=== PATIENT | female | born 1975 | race Hispanic/Latino ===

== ENCOUNTER 2017-08-27 07:06 | Inpatient (IN) | payer BC, SELFPAY ==
[2017-08-27] MEDS ORDERED: NA CHLORIDE 0.9% 1,000 ML ONE ×3 (07:25→10:54)
[2017-08-27] MEDS ORDERED: INSULIN -REGULAR HUMAN 50 UNIT/0.5 ML ML ONE (07:41)
[2017-08-27] MEDS ORDERED: NA CHLORIDE 0.9% 100 ML IV ONE (07:42)
[2017-08-27 07:45] LABS: Glucose Level 1131 mg/dL (65-120); Lipase 37 U/L (22-51); Potassium 7.1 mEq/L (3.6-5.0)
[2017-08-27 07:45] LABS: Arterial Blood Carboxyhemoglob 0.7 % (0-1.5)
[2017-08-27 07:47] LABS: ALT/SGPT 19 IU/L (10-60); AST/SGOT 77 IU/L (10-42); Absolute Lymphocytes (CBC) 5.7 K/uL (0.7-4.9); Absolute Monocytes 2.3 K/uL (0.1-1.3); Absolute Neutrophil 32.9 K/uL (1.8-8.0); Albumin 4.1 g/dL (3.2-5.5); Alkaline Phosphatase 169 IU/L (42-121); BUN Blood Urea Nitrogen 41 mg/dL (6-20); Basophils % 0.8 % (0-1.3); Bilirubin Direct < 0.1 mg/dL (0-0.2); Eosinophils % 0.2 % (0-4.4); Hematocrit 38.5 % (36.0-45.0); Lymphocytes % 13.9 % (15.3-44.8); MCH 22.4 pg (27.0-35.0); MCV 89.6 fL (80-100); MPV 11.7 fL (7.6-11.3); Monocytes % 5.5 % (3.3-12.3); Protein, Total 7.6 g/dL (6.0-8.3); RBC Red Blood Cell Count 4.29 M/uL (3.86-4.86)
[2017-08-27 07:48] LABS: Bicarbonate < 7 mEq/L (21-31)
[2017-08-27 07:50] LABS: Sodium Level 116 mEq/L (135-145)
[2017-08-27] MEDS ORDERED: D5W 1,000 ML with NA BICARB 8.4% 150 MEQ IV SCH ×2 (08:00)
--- NOTE | 2017-08-27 08:26 | RAD REPORT ---
[facility] 8[facility]10 am CLINICAL HISTORY: Chest pain COMPARISON: 2010 FINDINGS: Bilateral breast implants obscure the lung bases. Remainder lungs appear clear. . The hear t is normal size
[2017-08-27 09:05] LABS: Barbiturates NEGATIVE; Benzodiazepines NEGATIVE; Cocaine NEGATIVE; Opiates NEGATIVE; Phencyclidine NEGATIVE; THC Cannibis NEGATIVE
[2017-08-27 09:10] LABS: METHAMPHETAM POSITIVE
[2017-08-27 09:12] LABS: Potassium 6.3 mEq/L (3.6-5.0)
[2017-08-27 09:59] LABS: Potassium 5.3 mEq/L (3.6-5.0)
--- NOTE | 2017-08-27 10:04 | ER ---
Nurse's Notes [facility] Name: Abigail Oro Age: 41 yrs Sex: Female : 1975 Arrival Date: 08/27/2017 Time: 07:07 Bed 3 Private MD: Diagnosis: Diabetic Ketoacidosis;Dehydration;Acute kidney failure;Hyperglycemia, unspecified Presentation: 08/27 07:17 Presenting complaint: EMS states: Family received call from pt requesting help. found ph naked on bathroom floor, denies falling w/ no injuries noted, pt found w/ Kussmaul respirations and AMS, hx of DKA, BGL >500 per fingerstick. Transition of care: patient was not received from another setting of care. Onset of symptoms was August 27, 2017. Initial Sepsis Screen: Does the patient meet any 2 criteria? RR > 20 per min. Altered Mental Status. HR > 90 bpm. Yes Does the patient have a suspected source of infection? No. Patient's initial sepsis screen is negative. Care prior to arrival: IV initiated. 20 GA, in the right antecubital area. 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 - Social history:: Smoking status: unknown. - Family history:: not pertinent. - Hospitalizations: : No recent hospitalization is reported. Screenin:51 Abuse screen: Denies threats or abuse. Denies injuries from another. Nutritional ph screening: No deficits noted. Tuberculosis screening: No symptoms or risk factors identified. Fall Risk No fall in past 12 months (0 pts). Secondary diagnosis (15 points) DKA. IV access (20 points). Ambulatory Aid- None/Bed Rest/Nurse Assist (0 pts). Gait- Weak (10 pts.). Mental Status- Overestimates/Forgets Limitations (15 pts.). Total Gupta Fall Scale indicates High Risk Score (45 or more points). Fall prevention measures have been instituted. Side Rails Up X 2 Placed Close to Nursing Station Frequent Obs/Assessments Occuring Family Present and informed to notify staff if the need to leave the bedside As available patient and family educated on Fall Prevention Program and Strategies. Assessment: 07:30 General: Appears in no apparent distress. uncomfortable, slender, well groomed, ph Behavior is restless, Smells of ketones. Pain: Denies pain. Neuro: Level of Consciousness is awake, obeys commands, confused, Oriented to person, place. Cardiovascular: Denies chest pain, Capillary refill < 3 seconds. Respiratory: Airway is patent Respiratory effort is shallow, Respiratory pattern is Kussmaul tachypnea. GI: Abdomen is flat, non-distended, Patient currently denies nausea, vomiting. Derm: Skin is intact, Skin is dry, Skin is normal, Skin temperature is cool. Musculoskeletal: Circulation, motion, and sensation intact. Range of motion: intact in all extremities. 08:00 Reassessment: Patient appears in no apparent distress at this time. Patient and/or ph family updated on plan of care and expected duration. Pain level reassessed. Pt's daughter at bedside, given pt's jewelry, (2 rings and 1 bracelet). 08:06 Reassessment: pt taking off shorts, as shorts were pulled off, a small clear bag of iw white powdery substance fell to ground. Substance was placed in bio hazard bag and PD notified, are sending officer. 08:20 Reassessment: white substance handed off to Officer Cooper and Officer Chano of [employer]. iw 08:40 Reassessment: Criticore Pang inserted and pt's core temperature found to be 92.6, ERP ph notified and warming blanket placed. 09:38 Reassessment: Patient appears in no apparent distress at this time. Patient and/or ph family updated on plan of care and expected duration. Pain level reassessed. Pt's respirations slowed from 30 bpm to 22, pt more alert and responding appropriately to questions, oriented to person, place and situation. Daughter who has been at bedside leaving to go home, contact info: Celeste Oro [phone]. 10:34 Reassessment: Patient appears in no apparent distress at this time. No changes from ph previously documented assessment. Patient and/or family updated on plan of care and expected duration. Pain level reassessed. 11:56 Reassessment: Patient appears in no apparent distress at this time. Patient and/or ph family updated on plan of care and expected duration. Pain level reassessed. Fingerstick BGL decreased to 218, verbal order received from Dr Martin to decrease insulin drip from 7 units to 4. Vital Signs: 07:46 BP 101 / 68; Pulse 106; Resp 30; Temp 97.2(TE); Pulse Ox 100% on R/A; ph 08:15 BP 121 / 63; Pulse 106; Resp 28; Pulse Ox 100% ; ph 08:45 BP 122 / 79; Pulse 98; Resp 22; Temp 94.4(C); Pulse Ox 100% on R/A; ph 09:35 BP 124 / 63; Pulse 100; Resp 22; Temp 95.8(C); Pulse Ox 95% on R/A; ph 10:00 BP 118 / 72; Pulse 99; Resp 22; Temp 96.8(C); Pulse Ox 96% on R/A; ph 10:33 BP 108 / 74; Pulse 100; Resp 24; Temp 97.0(C); Pulse Ox 98% on R/A; ph 11:03 BP 111 / 75; Pulse 102; Resp 18; Temp 98.1(C); Pulse Ox 97% on R/A; ph 11:53 BP 102 / 74; Pulse 122; Resp 22; Temp 99.3(C); Pulse Ox 96% on R/A; sg 11:53 warming blanket d/c sg ED Course: 07:07 Patient arrived in ED. rn 07:07 Noah Pappas MD is Attending Physician. rn 07:10 Initial lab(s) drawn, by ky, sent to lab. Inserted saline lock: 20 gauge in right ph antecubital area, using aseptic technique. Blood collected. 07:17 Rosi Barron, NEVA is Primary Nurse. ph 07:20 Triage completed. ph 07:22 Arm band placed on. ph 07:51 Notified ED physician of a critical lab result(s). Lactate=71.1. iw 07:52 Patient has correct armband on for positive identification. Placed in gown. Bed in low ph position. Call light in reach. Side rails up X2. air sampling and monitoring on. Pulse ox on. NIBP on. Warm blanket given. Verbal reassurance given. 08:08 X-ray completed. Portable x-ray completed in exam room. Patient tolerated procedure jb2 well. 08:08 XRAY Chest (1 view) In Process Unspecified. EDMS 08:11 Notified ED physician of a critical lab result(s). WBC=41.1. iw 08:27 Inserted saline lock: 20 gauge in left antecubital area, using aseptic technique. iw 08:43 Urine Microscopic Only Sent. ag 08:43 Urine Culture Sent. ag 08:43 Blood Culture Adult (2) Sent. ag 08:44 Pang cath inserted, using sterile technique, 16 Fr., by ky, balloon inflated, to ag gravity drainage, clamped. urine specimen collected. 08:51 Pillow given. ph 08:52 Thermoregulation: warm blanket given to patient. ph 09:04 EKG done, by voice intercept technician. reviewed by Noah Pappas MD. at1 10:03 Sp Martin DO is Hospitalizing Provider. rn 10:03 Juanita Martin MD is Hospitalizing Provider. rn 11:03 No provider procedures requiring assistance completed. Patient admitted, IV remains in ph place. 15:35 Primary Nurse role handed off by Rosi Barron RN kb Administered Medications: 07:40 Drug: NS 0.9% 1000 ml Route: IV; Rate: 1000 ml; Site: right antecubital; ph 09:37 Follow up: Response: No adverse reaction; IV Status: Completed infusion ph 07:45 Drug: Insulin Drip - (Insulin Regular Human 100 units, NS 0.9% 100 ml) {Co-Signature: ph (Rosi Barron RN).} Route: IV; Rate: calculated rate; Site: right antecubital; 12:09 Follow up: Response: No adverse reaction; Blood sugar is lowered; Rate change 4 units/hrph 12:15 Follow up: Response: No adverse reaction; Blood sugar is lowered; IV Status: Infusion ph continued upon transfer 07:45 Drug: Insulin Regular Human 10 units {Co-Signature: ph (Rosi Barron RN).} Route: IVP; kl Site: right antecubital; 11:07 Follow up: Response: No adverse reaction; Blood sugar is lowered ph 07:45 Drug: Sodium Bicarbonate 1 amp Route: IVP; Site: right antecubital; iw 11:07 Follow up: Response: No adverse reaction ph 07:45 Drug: Sodium Bicarbonate 1 amp Route: IVP; Site: right antecubital; iw 11:07 Follow up: Response: No adverse reaction ph 08:27 Drug: D5W 1000 ml, Sodium Bicarbonate 150 mEq Route: IV; Rate: 150 ml/hr; Site: left iw antecubital; 12:08 Follow up: Response: No adverse reaction; IV Status: Infusion continued upon admission ph 09:36 Drug: NS 0.9% 1000 ml Route: IV; Rate: 1000 ml; Site: right antecubital; ph 11:08 Follow up: Response: No adverse reaction; IV Status: Completed infusion ph 11:05 Drug: Rocephin - (cefTRIAXone) 1 grams Route: IVPB; Infused Over: 30 mins; Site: right ph antecubital; 12:08 Follow up: Response: No adverse reaction; IV Status: Completed infusion ph 11:06 Drug: NS 0.9% 1000 ml Route: IV; Rate: 125 ml/hr; Site: right antecubital; ph 12:08 Follow up: IV Status: Infusion continued upon admission ph Point of Care Testing: Blood Glucose: 07:46 Blood Glucose: High (>450 mg/dL); iw 08:35 Blood Glucose: High (>450 mg/dL); ph 09:16 Blood Glucose: High (>450 mg/dL); ph 10:00 Blood Glucose: 439 mg/dL; ph 10:32 Blood Glucose: 373 mg/dL; ph 11:03 Blood Glucose: 441 mg/dL; ph 11:53 Blood Glucose: 218 mg/dL; sg 07:46 taken by NEVA Allen iw Ranges: Intake: 11:49 IV: 2000ml (IV Fluid); Total: 2000ml. ph Output: 11:49 Urine: 1500ml (Pang); Total: 1500ml. ph Outcome: 10:04 Decision to Hospitalize by Provider. rn 12:07 Admitted to ER Hold. Please see [facility] for further documentation. ph 12:07 critical 16:14 Patient left the ED. iw Signatures: Dispatcher [employer] Jaja Padron, MYSQL DATABASE ADMINISTRATOR-C SKYLER-Mona Martinez, RN RN Braulio Guevara, RN RN sg Tyson Cruz jb2 Saira Shrestha RN RN Noah Pappas MD MD rn Linsey davidson, site controller EKG Tat1 Franca Cooper Patricia, RN RN ph Rosi Barron RN ph Corrections: (The following items were deleted from the chart) 08:09 08:04 Reassessment: iw iw 08:55 07:46 BP 101 / 68; Pulse 106bpm; Resp 30bpm; Pulse Ox 100% RA; iw ph
--- NOTE | 2017-08-27 10:04 | EDPHYS ---
Physician Documentation [facility] Name: Abigail Oro Age: 41 yrs Sex: Female : 1975 Arrival Date: 08/27/2017 Time: 07:07 Bed 3 Private MD: ED Physician Noah Pappas HPI: 08/27 07:20 This 41 yrs old Female presents to ER via EMS with complaints of high blood rn sugar. 07:20 The patient or guardian reports hyperglycemia. Onset: The symptoms/episode rn began/occurred at an unknown time. Current symptoms: In the emergency department the patient's symptoms are unchanged from the initial presentation. The patient has experienced similar episodes in the past. REports out of insulin for 2 weeks, states "im in DKA", + nausea and dehydration.. 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 - Social history:: Smoking status: unknown. - Family history:: not pertinent. - Hospitalizations: : No recent hospitalization is reported. ROS: 07:20 Constitutional: Negative for fever, chills, and weight loss, Eyes: Negative for injury, rn pain, redness, and discharge, Neck: Negative for injury, pain, and swelling, Cardiovascular: Negative for chest pain, palpitations, and edema, Respiratory: Negative for shortness of breath, cough, wheezing, and pleuritic chest pain, Abdomen/GI: Negative for diarrhea, and constipation, MS/Extremity: Negative for injury and deformity, Skin: Negative for injury, rash, and discoloration, Neuro: Negative for headache, numbness, tingling, and seizure. Exam: 07:20 Constitutional: Well developed woman, appears agitated, writhing but follows commands rn Head/Face: Normocephalic, atraumatic. Eyes: Pupils equal round and reactive to light, extra-ocular motions intact. Lids and lashes normal. Conjunctiva and sclera are non-icteric and not injected. Cornea within normal limits. Periorbital areas with no swelling, redness, or edema. ENT: dry MM Cardiovascular: tachycardic, regular, no murmur Respiratory: + mild tachypnea, no retractions Abdomen/GI: Soft, non-tender, with normal bowel sounds. No distension or tympany. No guarding or rebound. No evidence of tenderness throughout. MS/ Extremity: Pulses equal, no cyanosis. Neurovascular intact. Full, normal range of motion. Equal circumference. Neuro: Awake and alert, GCS 15, oriented to person, place, time, and situation. Cranial nerves II-XII grossly intact. Motor strength 5/5 in all extremities. Sensory grossly intact. Vital Signs: 07:46 BP 101 / 68; Pulse 106; Resp 30; Temp 97.2(TE); Pulse Ox 100% on R/A; ph 08:15 BP 121 / 63; Pulse 106; Resp 28; Pulse Ox 100% ; ph 08:45 BP 122 / 79; Pulse 98; Resp 22; Temp 94.4(C); Pulse Ox 100% on R/A; ph 09:35 BP 124 / 63; Pulse 100; Resp 22; Temp 95.8(C); Pulse Ox 95% on R/A; ph 10:00 BP 118 / 72; Pulse 99; Resp 22; Temp 96.8(C); Pulse Ox 96% on R/A; ph 10:33 BP 108 / 74; Pulse 100; Resp 24; Temp 97.0(C); Pulse Ox 98% on R/A; ph 11:03 BP 111 / 75; Pulse 102; Resp 18; Temp 98.1(C); Pulse Ox 97% on R/A; ph 11:53 BP 102 / 74; Pulse 122; Resp 22; Temp 99.3(C); Pulse Ox 96% on R/A; sg 11:53 warming blanket d/c sg MDM: 07:07 Patient medically screened. rn 10:02 Differential diagnosis: DKA, hyperglycemia. Data reviewed: vital signs, nurses notes, furnace helper test result(s), EKG, radiologic studies, plain films, and as a result, I will admit patient. Counseling: I had a detailed discussion with the patient and/or guardian regarding: the historical points, exam findings, and any diagnostic results supporting the discharge/admit diagnosis, lab results, radiology results, the need for further work-up and treatment in the hospital. Response to treatment: the patient's symptoms have mildly improved after treatment, and as a result, I will admit patient. Admission orders: after a detailed discussion of the patient's condition and case, the admit orders are written by me. ED course: Pt much improved, more talkative, improved vitals, states has hx of elevated WBC, unknown etiology, will admit to Dr. Martin, notified \\T\\ 1000.. 08/27 07:09 Order name: Basic Metabolic Panel; Complete Time: 08:27 rn 08/27 07:09 Order name: CBC with Diff; Complete Time: 11:47 rn 08/27 07:09 Order name: Hepatic Function; Complete Time: 08:27 rn 08/27 07:09 Order name: Lipase; Complete Time: 08:27 rn 08/27 07:09 Order name: Urine Microscopic Only; Complete Time: 11:47 rn 08/27 07:09 Order name: Blood Culture Adult (2) rn 08/27 07:09 Order name: Urine Culture rn 08/27 07:09 Order name: Ketone, Serum; Complete Time: 08:27 rn 08/27 07:09 Order name: Lactate; Complete Time: 08:22 rn 08/27 07:09 Order name: ABG; Complete Time: 08:22 rn 08/27 07:42 Order name: Glucose; Complete Time: 09:59 iw 08/27 07:58 Order name: glucometer results - FOR PT WITH NO ID; Complete Time: 10:28 ph 08/27 08:09 Order name: Urine Drug Screen; Complete Time: 09:59 rn 08/27 08:10 Order name: Manual Differential; Complete Time: 11:47 EDMS 08/27 07:09 Order name: XRAY Chest (1 view); Complete Time: 08:27 rn 08/27 08:22 Order name: BMP; Complete Time: 09:59 rn 08/27 08:23 Order name: Glucose, Ancillary Testing; Complete Time: 08:23 EDMS 08/27 08:55 Order name: Urine Dipstick--Ancillary (enter results) bd 08/27 08:55 Order name: Urine --Ancillary (enter results) bd 08/27 09:17 Order name: Glucose, Ancillary Testing; Complete Time: 09:59 EDMS 08/27 09:18 Order name: Glucose, Ancillary Testing; Complete Time: 09:59 EDMS 08/27 09:25 Order name: Basic Metabolic Panel; Complete Time: 10:28 iw 08/27 10:54 Order name: Lactate Sepsis 2 HR Follow-up; Complete Time: 11:47 EDMS 08/27 11:52 Order name: Basic Metabolic Panel sg 08/27 11:53 Order name: Acetone, Serum sg 08/27 14:36 Order name: Basic Metabolic Panel EDMS 08/27 14:36 Order name: Phosphorus EDMS 08/27 14:36 Order name: Magnesium EDMS 08/27 14:55 Order name: Acetone Level EDMS 08/27 07:09 Order name: Urine Test (obtain specimen); Complete Time: 08:43 rn 08/27 07:09 Order name: IV Saline Lock; Complete Time: 07:23 rn 08/27 07:09 Order name: Labs collected and sent; Complete Time: 07:23 rn 08/27 07:09 Order name: Urine Dipstick-Ancillary (obtain specimen); Complete Time: 08:43 rn 08/27 07:09 Order name: EKG; Complete Time: 07:09 rn 08/27 07:09 Order name: EKG - Nurse/Tech; Complete Time: 09:36 rn Administered Medications: 07:40 Drug: NS 0.9% 1000 ml Route: IV; Rate: 1000 ml; Site: right antecubital; ph 09:37 Follow up: Response: No adverse reaction; IV Status: Completed infusion ph 07:45 Drug: Insulin Drip - (Insulin Regular Human 100 units, NS 0.9% 100 ml) {Co-Signature: ph (Rosi Barron RN).} Route: IV; Rate: calculated rate; Site: right antecubital; 12:09 Follow up: Response: No adverse reaction; Blood sugar is lowered; Rate change 4 units/hrph 12:15 Follow up: Response: No adverse reaction; Blood sugar is lowered; IV Status: Infusion ph continued upon transfer 07:45 Drug: Insulin Regular Human 10 units {Co-Signature: ph (Rosi Barron RN).} Route: IVP; Site: right antecubital; 11:07 Follow up: Response: No adverse reaction; Blood sugar is lowered ph 07:45 Drug: Sodium Bicarbonate 1 amp Route: IVP; Site: right antecubital; iw 11:07 Follow up: Response: No adverse reaction ph 07:45 Drug: Sodium Bicarbonate 1 amp Route: IVP; Site: right antecubital; iw 11:07 Follow up: Response: No adverse reaction ph 08:27 Drug: D5W 1000 ml, Sodium Bicarbonate 150 mEq Route: IV; Rate: 150 ml/hr; Site: left iw antecubital; 12:08 Follow up: Response: No adverse reaction; IV Status: Infusion continued upon admission ph 09:36 Drug: NS 0.9% 1000 ml Route: IV; Rate: 1000 ml; Site: right antecubital; ph 11:08 Follow up: Response: No adverse reaction; IV Status: Completed infusion ph 11:05 Drug: Rocephin - (cefTRIAXone) 1 grams Route: IVPB; Infused Over: 30 mins; Site: right ph antecubital; 12:08 Follow up: Response: No adverse reaction; IV Status: Completed infusion ph 11:06 Drug: NS 0.9% 1000 ml Route: IV; Rate: 125 ml/hr; Site: right antecubital; ph 12:08 Follow up: IV Status: Infusion continued upon admission ph Point of Care Testing: Blood Glucose: 07:46 Blood Glucose: High (>450 mg/dL); iw 08:35 Blood Glucose: High (>450 mg/dL); ph 09:16 Blood Glucose: High (>450 mg/dL); ph 10:00 Blood Glucose: 439 mg/dL; ph 10:32 Blood Glucose: 373 mg/dL; ph 11:03 Blood Glucose: 441 mg/dL; ph 11:53 Blood Glucose: 218 mg/dL; sg 07:46 taken by NEVA Allen iw Ranges: Critical Glucose Levels:Adult <50 mg/dl or >400 mg/dl <40 mg/dl or >180 mg/dl Disposition: 08/27/17 10:04 Hospitalization ordered by Juanita Martin for Inpatient Admission. Preliminary diagnosis are Diabetic Ketoacidosis, Dehydration, Acute kidney failure, Hyperglycemia, unspecified. - Bed requested for Intensive Care Unit. - Status is Inpatient Admission. iw - Condition is Fair. - Problem is new. - Symptoms have improved. UTI on Admission? No Critical care time excluding procedures: 10:02 Critical care time: Bedside Care: 25 minutes, Consultation: 5 minutes. Total time: 30 rn minutes Signatures: Dispatcher [employer] EDMS Azalia Dee bd Mona Henry, RN Saira Cadena RN RN iw Noah Pappas MD MD rn Anderson, NEVA Aranda RN ph Rosi Barron RN ph Corrections: (The following items were deleted from the chart) 12:00 10:04 Hospitalization Ordered by Juanita Martin MD for Inpatient Admission. Preliminary iw diagnosis is Diabetic Ketoacidosis; Dehydration; Acute kidney failure; Hyperglycemia, unspecified. Bed requested for Intensive Care Unit. Status is Inpatient Admission. Condition is Fair. Problem is new. Symptoms have improved. UTI on Admission? No. rn 13:42 12:00 08/27/2017 10:04 Hospitalization Ordered by Juanita Martin MD for Inpatient bd Admission. Preliminary diagnosis is Diabetic Ketoacidosis; Dehydration; Acute kidney failure; Hyperglycemia, unspecified. Bed requested for [facility] ER HOLD. Status is Inpatient Admission. Condition is Fair. Problem is new. Symptoms have improved. UTI on Admission? No. iw 16:14 13:42 08/27/2017 10:04 Hospitalization Ordered by Juanita Martin MD for Inpatient iw Admission. Preliminary diagnosis is Diabetic Ketoacidosis; Dehydration; Acute kidney failure; Hyperglycemia, unspecified. Bed requested for Intensive Care Unit. Status is Inpatient Admission. Condition is Fair. Problem is new. Symptoms have improved. UTI on Admission? No. bd
[2017-08-27 10:28] LABS: Urine Amorphous Sediment 1+ /HPF (NONE SEEN); Urine Bacteria <20 /HPF (<20); Urine Culture Reflex Order NOT NEEDED; Urine Mucus 1+ /HPF (NONE SEEN); Urine Yeast PRESENT (NONE SEEN)
[2017-08-27] MEDS ORDERED: CEFTRIAXONE/SWI 1gm 1 GM/10 ML SYR ONE (10:54)
[2017-08-27 11:18] LABS: Anisocytosis 1+; Blood Morphology Comment NOTED (NOT SEEN); Platelet Estimate INCR; Poikilocytosis 1+
[2017-08-27] MEDS ORDERED: INSULIN -REGULAR HUMAN 100 UNIT in NA CHLORIDE 0.9% 100 ML IV SCH (11:45)
[2017-08-27] MEDS: D5W 1,000 ML IV SCH ×2 (12:00→22:58)
[2017-08-27] MEDS ORDERED: NACHLORIDE 0.45% 1,000 ML IV SCH (12:00)
[2017-08-27] MEDS ORDERED: D5W 1,000 ML IV ONE (12:34)
[2017-08-27] MEDS ORDERED: ACETAMINOPHEN 500 MG TAB ONE (12:34)
[2017-08-27] MEDS: ACETAMINOPHEN 500 MG TAB PO PRN (12:45)
[2017-08-27 13:13] LABS: Urine Blood 2+ (NEG); Urine Glucose 2+ (NEG); Urine Protein 2+ (NEG); Urine Specific Gravity 1.015 (1.005-1.030)
--- NOTE | 2017-08-27 13:28 | EKG ---
Test Date: 2017-08-27 Test Time: 08:59:40 Leak Patcher: AMADOU MEASUREMENT RESULTS: Intervals: Rate: 104 VA: 130 QRSD: 90 QT: 374 QTc: 491 [place]: P: 73 VA: 130 QRS: 70 T: 23 INTERPRETIVE STATEMENTS: Sinus tachycardia Possible Left atrial enlargement Borderline ECG Compared to ECG 10/19/2010 16:48:39 Sinus rhythm no longer present Electronically Signed On 08-27-17 13:27:54 CDT by Gui Srivastava
[2017-08-27 14:27] LABS: BUN Blood Urea Nitrogen 30 mg/dL (6-20); Bicarbonate 15 mEq/L (21-31); Glucose Level 264 mg/dL (65-120); Magnesium 2.2 mg/dL (1.8-2.5); Phosphorus 2.5 mg/dL (2.5-4.3); Sodium Level 137 mEq/L (135-145)
--- NOTE | 2017-08-27 15:42 | P.HP ---
Certification for Inpatient Patient admitted to: Inpatient With expected LOS: >2 Midnights Patient will require the following post-hospital care: None Practitioner: I am a practitioner with admitting privileges, knowledge of patient current condition, hospital course, and medical plan of care. Services: Services provided to patient in accordance with Admission requirements found in Title 42 Section 412.3 of the Code of Federal Regulations Patient History Date of Service: 08/27/17 Primary Care Provider: Dr Carroll Reason for admission: DKA History of Present Illness: This is a 41 Y/O F with Significant pmhx of Diabetes Type 2, Noncompliance with medication, Drug abuse who presented to the ED with complains of N/V and abd pain. Pt states she felt like she was going "" and thus decided to call Ambulance to come to the ER for further care. She states she has been not taking her insulin for past 2 months as she ran out of it and did not get it filled. Initially pt was very somnolence in the ED but when I evaluted the pt she was lethargic but oriented. Pt states she was having n/v for past 2 weeks and progressively got worse. + for fever as well .No CP or SOB noted. Pt also was found to have meth in her pocket in the ED and admit to taking illicit drugs. In the ER pt had lab work done which was consistent with DKA and UDS + for Amphetamines. Pt was admitted for further care. Allergies cephalexin monohydrate [From Keflex] Allergy (Intermediate, Verified 08/21/11 14 :39) Hives/Rash Review of Systems General: As per HPI Physical Examination - Vital Signs Temperature: 99.4 F Blood Pressure: 109/75 Pulse: 122 Respirations: 20 Pulse Ox (%): 96 - Physical Exam General: In no apparent distress, Oriented x3, Other (Lethargic ) HEENT: Atraumatic Neck: Supple Respiratory: Normal air movement, Expiratory wheezes Cardiovascular: Normal S1 S2, Irregular heart rate/rhythm (Tachycardia) Gastrointestinal: Normal bowel sounds, Soft and benign, Non-distended, No tenderness Musculoskeletal: No tenderness Integumentary: No rashes Neurological: Normal speech, Normal tone, Abnormal strength Lymphatics: No axilla or inguinal lymphadenopathy - Studies Laboratory Data (last 24 hrs) 08/27/17 09:32: Sodium 126 L, Potassium 5.3 H, BUN 42 H, Creatinine 2.04 H, Glucose 775 H* 08/27/17 08:35: Sodium 124 L, Potassium 6.3 H*, BUN 44 H, Creatinine 2.10 H, Glucose 1010 H* 08/27/17 07:10: Glucose 1159 H* 08/27/17 07:10: WBC 41.3 H*, Hgb 9.6 L, Hct 38.5, Plt Count 540 H 08/27/17 07:10: Sodium 116 L*, Potassium 7.1 H*, BUN 41 H, Creatinine 2.18 H, Glucose 1131 H*, Total Bilirubin 1.0, AST 77 H, ALT 19, Alkaline Phosphatase 169 H, Lipase 37 Assessment and Plan - Problems (Diagnosis) (1) DKA (diabetic ketoacidoses) Current Visit: Yes Status: Acute Plan: DKA with Anion gap of >30 initially in the ED with coma. Coma resolved. pt is alert and oriented. -S/P 2L of NS and Bicarb in the ER -Insulin ggt now and NS at 100 with D5W/Bicarb at 150ml/hr -Will switch to D5W only if BS < 200 -Will Await for gap to close x 2 -Continue currently mgmt. -BMP, Acetone, Mg and phos q4h Qualifiers: Diabetes mellitus type: type 2 Diabetes mellitus complication detail: without coma Qualified Code(s): E11.10 - Type 2 diabetes mellitus with ketoacidosis without coma (2) Sepsis Current Visit: Yes Status: Acute Plan: Sepsis with WBC elevated, LA elevated with unknown source -Blood and urine culture collected. Pending results. -Started on Rocephin -Pt states she has been told in the past that she has leukocytosis -Repeat lab in AM -If needed consult Oncology Qualifiers: Sepsis type: sepsis due to unspecified organism Qualified Code(s): A41.9 - Sepsis, unspecified organism (3) Hypothermia Current Visit: Yes Status: Acute Plan: Hypothermic upon presentation. Most likely 2.2 DKA -Body temperature warmed up to 96.0 now -Continue with bare hugger Qualifiers: Encounter type: initial encounter Qualified Code(s): T68.XXXA - Hypothermia , initial encounter (4) Drug abuse Current Visit: Yes Status: Acute Plan: + UDS of METH -Counseled extensively Discharge Plan: Home Plan to discharge in: 48 Hours - Advance Directives Does patient have a Living Will: No Does patient have a Durable POA for Healthcare: No - Code Status/Comfort Care Code Status Assessed: Yes Critical Care: Yes
[2017-08-27 16:26] VITALS: BMI 23.1
[2017-08-27] MEDS ORDERED: D5W 1,000 ML with NA BICARB 8.4% 50 MEQ IV SCH ×2 (17:00)
[2017-08-27] MEDS: D5W 1,000 ML with NA BICARB 8.4% 150 MEQ IV SCH ×4 (17:09→23:34)
[2017-08-27 17:12] LABS: Bicarbonate 20 mEq/L (21-31); Potassium 3.9 mEq/L (3.6-5.0); Sodium Level 133 mEq/L (135-145)
[2017-08-27 17:16] LABS: BUN Blood Urea Nitrogen 28 mg/dL (6-20); Glucose Level 211 mg/dL (65-120); Magnesium 2.2 mg/dL (1.8-2.5); Phosphorus 3.3 mg/dL (2.5-4.3)
[2017-08-27 21:13] LABS: Absolute Lymphocytes (CBC) 0.7 K/uL (0.7-4.9); Absolute Monocytes 1.2 K/uL (0.1-1.3); Absolute Neutrophil 10.1 K/uL (1.8-8.0); Basophils % 1.1 % (0-1.3); Eosinophils % 0.2 % (0-4.4); Hematocrit 29.4 % (36.0-45.0); Lymphocytes % 6.1 % (15.3-44.8); MCH 22.5 pg (27.0-35.0); MCV 70.2 fL (80-100); MPV 9.6 fL (7.6-11.3); Monocytes % 9.8 % (3.3-12.3); RBC Red Blood Cell Count 4.19 M/uL (3.86-4.86)
[2017-08-27 21:46] LABS: BUN Blood Urea Nitrogen 25 mg/dL (6-20); Bicarbonate 26 mEq/L (21-31); Glucose Level 193 mg/dL (65-120); Phosphorus 3.3 mg/dL (2.5-4.3); Sodium Level 134 mEq/L (135-145)
[2017-08-27 21:55] LABS: Anisocytosis 1+; Blood Morphology Comment NOTED (NOT SEEN); Platelet Estimate ADEQ
[2017-08-28 01:47] LABS: Bicarbonate 28 mEq/L (21-31); Potassium 3.3 mEq/L (3.6-5.0); Sodium Level 135 mEq/L (135-145)
[2017-08-28 01:48] LABS: BUN Blood Urea Nitrogen 19 mg/dL (6-20); Glucose Level 174 mg/dL (65-120); Magnesium 1.9 mg/dL (1.8-2.5); Phosphorus 2.6 mg/dL (2.5-4.3)
[2017-08-28 05:17] LABS: Bicarbonate 32 mEq/L (21-31); Potassium 3.1 mEq/L (3.6-5.0); Sodium Level 134 mEq/L (135-145)
[2017-08-28 05:22] LABS: BUN Blood Urea Nitrogen 14 mg/dL (6-20); Glucose Level 174 mg/dL (65-120); Magnesium 1.9 mg/dL (1.8-2.5); Phosphorus 2.1 mg/dL (2.5-4.3)
[2017-08-28] MEDS: POTASSIUM PHOS 20 MEQ in NA CHLORIDE 0.9% 250 ML IV ONE ×2 (06:35→13:35)
[2017-08-28] MEDS ORDERED: KCL 20 MEQ/100 mL IVPB 20 MEQ/100 ML BAG IV SCH (07:00)
[2017-08-28] MEDS: CEFTRIAXONE/SWI 1gm 1 GM/10 ML SYR IV SCH (08:02)
[2017-08-28] MEDS: ACETAMINOPHEN 500 MG TAB PO PRN (08:11)
[2017-08-28] MEDS: D5W 1,000 ML IV SCH (08:25)
[2017-08-28 08:54] LABS: BUN Blood Urea Nitrogen 10 mg/dL (6-20)
[2017-08-28] MEDS: D5W 1,000 ML with NA BICARB 8.4% 150 MEQ IV SCH ×2 (08:54)
[2017-08-28 08:55] LABS: Bicarbonate 36 mEq/L (21-31); Glucose Level 188 mg/dL (65-120); Magnesium 1.8 mg/dL (1.8-2.5); Phosphorus 1.7 mg/dL (2.5-4.3); Sodium Level 135 mEq/L (135-145)
[2017-08-28 08:57] LABS: Potassium 2.6 mEq/L (3.6-5.0)
[2017-08-28] MEDS ORDERED: CEFTRIAXONE/SWI 1gm 1 GM/10 ML SYR IV SCH (09:00)
[2017-08-28] MEDS ORDERED: CEFTRIAXONE 1 GM/NS 50 ML 1 GM/50 ML BAG IV SCH ×2 (09:00)
[2017-08-28] MEDS ORDERED: GLUCAGON 1 MG/VIAL IM PRN (09:08)
[2017-08-28] MEDS ORDERED: D50W 25 GM/50 ML SYRINGE IV PRN (09:08)
[2017-08-28] MEDS: D5W 1,000 ML with POTASSIUM CL 20 MEQ IV SCH ×8 (09:48→22:03)
--- NOTE | 2017-08-28 12:50 | P.PN ---
Subjective Date of Service: 08/28/17 Primary Care Provider: Dr Carroll Chief Complaint: DKA pt seen and examined at bedside. Chart and lab reviewed. Overnight no complains to offer. Pt received total of 35 units of Insulin on the ggt in last 24hrs. Gap closed x 2 now. Doing well no nausea or vomiting. Review of Systems General: As per HPI Physical Examination - Vital Signs Temperature: 99.9 F Blood Pressure: 103/62 Pulse: 93 Respirations: 22 Pulse Ox (%): 100 - Physical Exam General: Alert, In no apparent distress, Oriented x3 HEENT: Atraumatic, PERRLA, EOMI Neck: Supple, JVD not distended Respiratory: Clear to auscultation bilaterally, Normal air movement Cardiovascular: Regular rate/rhythm, Normal S1 S2 Gastrointestinal: Normal bowel sounds, No tenderness Musculoskeletal: No tenderness Integumentary: No rashes Neurological: Normal speech, Normal tone, Normal affect Lymphatics: No axilla or inguinal lymphadenopathy - Studies Medications List Reviewed: Yes Assessment & Plan - Problems (Diagnosis) (1) DKA (diabetic ketoacidoses) Onset Date: 08/28/17 Current Visit: Yes Status: Acute Plan: DKA with Anion gap of >30 initially in the ED. Pt is now alert and oriented. -S/P 2L of NS and Bicarb in the ER -Gap Closed x 2 -Insulin ggt down to 0.5 units now. -Given Levemir 15units now. Stop ggt in 2 hours. -D5W at 150ml/hr -Repeat BMP -Diabetic Diet if no Nausea or vomiting. Qualifiers: Diabetes mellitus type: type 2 Diabetes mellitus complication detail: without coma Qualified Code(s): E11.10 - Type 2 diabetes mellitus with ketoacidosis without coma (2) Sepsis Onset Date: 08/28/17 Current Visit: Yes Status: Acute Plan: Sepsis with WBC elevated, LA elevated with unknown source -Blood and urine culture collected. Pending results. -On Rocephin will continue till culture. -Repeat lab in AM with improving WBC Qualifiers: Sepsis type: sepsis due to unspecified organism Qualified Code(s): A41.9 - Sepsis, unspecified organism (3) Hypothermia Onset Date: 08/28/17 Current Visit: Yes Status: Resolved Plan: Hypothermic upon presentation. Most likely 2.2 DKA -Body temperature warmed up to WNL. Qualifiers: Encounter type: initial encounter Qualified Code(s): T68.XXXA - Hypothermia , initial encounter (4) Drug abuse Onset Date: 08/28/17 Current Visit: Yes Status: Acute Plan: + UDS of METH -Counseled extensively (5) HAYDER (acute kidney injury) Current Visit: Yes Status: Resolved Plan: Most Likely 2/2 to Dehydration -IV fluids for now Discharge Plan: Home Plan to discharge in: 48 Hours - Code Status/Comfort Care Code Status Assessed: Yes Critical Care: Yes
[2017-08-28 13:22] LABS: BUN Blood Urea Nitrogen 8 mg/dL (6-20)
[2017-08-28 13:30] LABS: Bicarbonate 36 mEq/L (21-31); Glucose Level 154 mg/dL (65-120); Sodium Level 135 mEq/L (135-145)
[2017-08-28 13:33] LABS: Potassium 2.5 mEq/L (3.6-5.0)
[2017-08-28] MEDS ORDERED: POTASSIUM CL SA 10 MEQ TAB PO ONE ×3 (13:43→17:28)
[2017-08-28] MEDS: INSULIN -REGULAR HUMAN 50 UNIT/0.5 ML ML SQ SCH ×2 (16:30→21:00)
[2017-08-28] MEDS: INSULIN DETEMIR 100 UNIT/1 ML INSULIN SQ SCH (16:34)
[2017-08-28] MEDS: ONDANSETRON 4 MG/2 ML VIAL IV PRN (22:04)
[2017-08-28] MEDS ORDERED: Morphine 2 MG/2 ML SYR IV ONE (22:17)
[2017-08-29] MEDS: D5W 1,000 ML with POTASSIUM CL 20 MEQ IV SCH ×8 (05:10→22:59)
[2017-08-29] MEDS ORDERED: Morphine 2 MG/2 ML SYR IV ONE (06:42)
[2017-08-29] MEDS ORDERED: NA CHLORIDE 0.9% 1,000 ML IV ONE (06:42)
[2017-08-29] MEDS: ACETAMINOPHEN 500 MG TAB PO PRN ×3 (07:49→20:13)
[2017-08-29] MEDS: INSULIN DETEMIR 100 UNIT/1 ML INSULIN SQ SCH ×2 (08:13→17:31)
[2017-08-29] MEDS: CEFTRIAXONE/SWI 1gm 1 GM/10 ML SYR IV SCH (08:13)
[2017-08-29] MEDS: INSULIN -REGULAR HUMAN 50 UNIT/0.5 ML ML SQ SCH ×4 (08:14→20:13)
[2017-08-29] MEDS ORDERED: INSULIN DETEMIR 100 UNIT/1 ML INSULIN SQ ONE (09:08)
[2017-08-29 09:38] LABS: Absolute Lymphocytes (CBC) 1.2 K/uL (0.7-4.9); Absolute Monocytes 0.6 K/uL (0.1-1.3); Absolute Neutrophil 7.6 K/uL (1.8-8.0); Basophils % 0.6 % (0-1.3); Eosinophils % 0.5 % (0-4.4); Lymphocytes % 12.2 % (15.3-44.8); MCH 22.3 pg (27.0-35.0); MCV 71.6 fL (80-100); MPV 9.5 fL (7.6-11.3); RBC Red Blood Cell Count 4.06 M/uL (3.86-4.86)
[2017-08-29 09:54] LABS: Bicarbonate 27 mEq/L (21-31); Sodium Level 129 mEq/L (135-145)
[2017-08-29 09:59] LABS: ALT/SGPT 19 IU/L (10-60); AST/SGOT 34 IU/L (10-42); Albumin 3.2 g/dL (3.2-5.5); Alkaline Phosphatase 133 IU/L (42-121); BUN Blood Urea Nitrogen 8 mg/dL (6-20); Bilirubin Total 0.6 mg/dL (0.3-1.2); Glucose Level 335 mg/dL (65-120); Protein, Total 6.2 g/dL (6.0-8.3)
--- NOTE | 2017-08-29 13:04 | P.PN ---
Subjective Date of Service: 08/29/17 Primary Care Provider: Dr Carroll Chief Complaint: DKA pt seen and examined at bedside. Chart and lab reviewed. Overnight no complains to offer. Doing well and no complains to offer overnight. Transfer to the floor today Review of Systems General: As per HPI Physical Examination - Vital Signs Temperature: 99.3 F Blood Pressure: 117/63 Pulse: 90 Respirations: 16 Pulse Ox (%): 100 - Physical Exam General: Alert, In no apparent distress HEENT: Atraumatic, PERRLA, EOMI Neck: Supple, JVD not distended Respiratory: Clear to auscultation bilaterally, Normal air movement Cardiovascular: Regular rate/rhythm, Normal S1 S2 Gastrointestinal: Normal bowel sounds, No tenderness Musculoskeletal: No tenderness Integumentary: No rashes Neurological: Normal speech, Normal tone, Normal affect Lymphatics: No axilla or inguinal lymphadenopathy - Studies Microbiology Data (last 24 hrs): 08/27/17 08:30 Catheterized Urine Avalon Count - Final <10,000 CFU/ML. 08/27/17 08:30 Catheterized Urine - Final Medications List Reviewed: Yes Assessment & Plan - Problems (Diagnosis) (1) Sepsis Onset Date: 08/28/17 Current Visit: Yes Status: Resolved Plan: Sepsis with WBC elevated, LA elevated with unknown source. Now resolved. Qualifiers: Sepsis type: sepsis due to unspecified organism Qualified Code(s): A41.9 - Sepsis, unspecified organism (2) DKA (diabetic ketoacidoses) Onset Date: 08/28/17 Current Visit: Yes Status: Resolved Plan: DKA with Anion gap of >30 initially in the ED. Resolved now -Levemir 15 units BID for now -AC HS BS check Qualifiers: Diabetes mellitus type: type 2 Diabetes mellitus complication detail: without coma Qualified Code(s): E11.10 - Type 2 diabetes mellitus with ketoacidosis without coma (3) Hypothermia Onset Date: 08/28/17 Current Visit: Yes Status: Resolved Plan: Hypothermic upon presentation. Most likely 2.2 DKA. Now resolved -Body temperature warmed up to WNL. Qualifiers: Encounter type: initial encounter Qualified Code(s): T68.XXXA - Hypothermia , initial encounter (4) Drug abuse Onset Date: 08/28/17 Current Visit: Yes Status: Acute Plan: + UDS of METH -Counseled extensively (5) HAYDER (acute kidney injury) Current Visit: Yes Status: Resolved Plan: Most Likely 2/2 to Dehydration -IV fluids for now Discharge Plan: Home Plan to discharge in: 48 Hours - Code Status/Comfort Care Code Status Assessed: Yes Critical Care: No
[2017-08-29] MEDS: ONDANSETRON 4 MG/2 ML VIAL IV PRN (20:13)
[2017-08-30] MEDS: D5W 1,000 ML with POTASSIUM CL 20 MEQ IV SCH ×6 (02:24→09:08)
[2017-08-30] MEDS: ACETAMINOPHEN 500 MG TAB PO PRN ×2 (06:15→10:17)
[2017-08-30] MEDS: ONDANSETRON 4 MG/2 ML VIAL IV PRN (06:31)
[2017-08-30] MEDS: INSULIN -REGULAR HUMAN 50 UNIT/0.5 ML ML SQ SCH ×2 (07:30→11:30)
[2017-08-30] MEDS: INSULIN DETEMIR 100 UNIT/1 ML INSULIN SQ SCH (08:00)
[2017-08-30 08:36] VITALS: BP 114/68; TEMP 98.1
[2017-08-30 08:43] LABS: Magnesium 1.9 mg/dL (1.8-2.5); Phosphorus 1.9 mg/dL (2.5-4.3); Potassium 3.9 mEq/L (3.6-5.0)
[2017-08-30] MEDS: CEFTRIAXONE/SWI 1gm 1 GM/10 ML SYR IV SCH (09:23)
[2017-08-30 10:44] VITALS: O2SAT 98
--- NOTE | 2017-08-30 13:48 | P.DS ---
Admission Date: 08/27/17 Discharge Date: 08/30/17 Primary Care Provider: Dr Carroll Disposition: ROUTINE DISCHARGE Discharge Condition: GOOD Reason for Admission: DKA - Problems (1) Sepsis Onset Date: 08/28/17 Status: Ruled-out Qualifiers: Sepsis type: sepsis due to unspecified organism Qualified Code(s): A41.9 - Sepsis, unspecified organism (2) DKA (diabetic ketoacidoses) Onset Date: 08/28/17 Status: Resolved Qualifiers: Diabetes mellitus type: type 2 Diabetes mellitus complication detail: without coma Qualified Code(s): E11.10 - Type 2 diabetes mellitus with ketoacidosis without coma (3) Hypothermia Onset Date: 08/28/17 Status: Resolved Qualifiers: Encounter type: initial encounter Qualified Code(s): T68.XXXA - Hypothermia , initial encounter (4) Drug abuse Onset Date: 08/28/17 Status: Acute (5) HAYDER (acute kidney injury) Status: Resolved Brief History of Present Illness: This is a 41 Y/O F with Significant pmhx of Diabetes Type 2, Noncompliance with medication, Drug abuse who presented to the ED with complains of N/V and abd pain. Pt states she felt like she was going "" and thus decided to call Ambulance to come to the ER for further care. She states she has been not taking her insulin for past 2 months as she ran out of it and did not get it filled. Initially pt was very somnolence in the ED but when I evaluted the pt she was lethargic but oriented. Pt states she was having n/v for past 2 weeks and progressively got worse. + for fever as well .No CP or SOB noted. Pt also was found to have meth in her pocket in the ED and admit to taking illicit drugs. In the ER pt had lab work done which was consistent with DKA and UDS + for Amphetamines. Pt was admitted for further care. Hospital Course: Overall during the hospital stay patient remained stable The patient was initially admitted to the hospital for metabolic acidosis with large anion gap, most likely secondary to diabetic ketoacidosis. Patient was started on insulin drip in the ER and was continued on insulin drip. Patient's initial anion gap was more than 30. Patient was kept on insulin drip for 24 hr while in the ICU. Patient's CT close x2 patient required total of 35 units on the insulin drip and thus was transitioned over to Levemir 15 units b.i.d.. Patient did markedly well while here in the hospital her acidosis did resolve. The patient then was educated extensively on diet and exercise and medication compliance. Patient demonstrated understanding and thus was discharged home under stable condition. Patient while here in the hospital was also found to have methamphetamines and THC in her urine. Patient again was educated extensively on drug abuse and the effects of it on the diabetes. Patient demonstrated understanding and stated that she will not be doing any more drugs. While here in the hospital patient was also found to have acute kidney injury along with elevated white blood cell count. Most likely secondary to dehydration. Patient received IV fluids here in the hospital which improved her acute renal failure and leukocytosis. Patient did not have any signs of infection and the blood culture and urine culture were both negative. Patient was thus discharged home under stable condition without any antibiotics was given a prescription for Levemir to be taken 10 units in the morning and 15 units at night time along with her Glipiride. Patient was given prescriptions and medication was also called in to the pharmacy. Vital Signs/Physical Exam: Temp Pulse Resp BP Pulse Ox 98.1 F 94 H 18 114/68 98 08/30/17 08:00 08/30/17 08:00 08/30/17 08:00 08/30/17 08:00 08/30/17 08:00 General: Alert, In no apparent distress HEENT: Atraumatic, PERRLA, EOMI Neck: Supple, JVD not distended Respiratory: Clear to auscultation bilaterally, Normal air movement Cardiovascular: Regular rate/rhythm, Normal S1 S2 Gastrointestinal: Normal bowel sounds, No tenderness Musculoskeletal: No tenderness Integumentary: No rashes Neurological: Normal speech, Normal tone, Normal affect Lymphatics: No axilla or inguinal lymphadenopathy Laboratory Data at Discharge: WBC 9.5 K/uL (4.3-10.9) D 08/29/17 09:21 Hgb 9.1 g/dL (12.0-15.0) L 08/29/17 09:21 Hct 29.0 % (36.0-45.0) L 08/29/17 09:21 Plt Count 295 K/uL (152-406) 08/29/17 09:21 Sodium 129 mEq/L (135-145) L 08/29/17 09:21 Potassium 3.9 mEq/L (3.6-5.0) 08/30/17 07:36 BUN 8 mg/dL (6-20) 08/29/17 09:21 Creatinine 0.59 mg/dL (0.44-1.00) 08/29/17 09:21 Glucose 335 mg/dL (65-120) H 08/29/17 09:21 Phosphorus 1.9 mg/dL (2.5-4.3) L 08/30/17 07:36 Magnesium 1.9 mg/dL (1.8-2.5) 08/30/17 07:36 Total Bilirubin 0.6 mg/dL (0.3-1.2) 08/29/17 09:21 AST 34 IU/L (10-42) 08/29/17 09:21 ALT 19 IU/L (10-60) 08/29/17 09:21 Alkaline Phosphatase 133 IU/L (42-121) H 08/29/17 09:21 Lipase 37 U/L (22-51) 08/27/17 07:10 Home Medications: Glimepiride [Amaryl*] 2 mg PO DAILY #30 tab 08/30/17 Insulin Detemir [Levemir*] 10 units SQ BEDTIME #30 ml 08/30/17 Insulin Detemir [Levemir*] 15 units SQ DAILY WITH BREAKFAST #30 ml 08/30/17 New Medications: Glimepiride [Amaryl*] 2 mg PO DAILY #30 tab Insulin Detemir [Levemir*] 10 units SQ BEDTIME #30 ml Insulin Detemir [Levemir*] 15 units SQ DAILY WITH BREAKFAST #30 ml Patient Discharge Instructions: Please f/u with PCP in 1 to 2 days post discharge. New medication. Levemir 15 units IN AM. Levemir 10 units IN PM. Glipiride 2mg daily Diet: Regular Activity: Ad desmond Followup: Sp Martin, [ACTIVE - CAN ADMIT] - (call to schedule appointment)
== END 2017-08-30 11:38 | disposition home or self-care (01) | DRG 638 ==
LOC: ER 07:06 → ERHOLD 10:19 → 3RD-ICU 15:53 → 4TH 08-29 10:40
PROVIDERS: ADMIT Family Medicine; ATTEND Family Medicine
DX: E11.10 Type 2 diabetes mellitus with ketoacidosis without coma (principal); N17.9 Acute kidney failure, unspecified; T68.XXXA Hypothermia, initial encounter; F15.10 Other stimulant abuse, uncomplicated; Z91.14 Patient's other noncompliance with medication regimen
CPT/HCPCS: 36415; 51702; 71045; 80048; 80053; 80076; 80307; 81003; 81015; 81025; 82009; 82805; 82947; 82962; 83605; 83690; 83735; 84100; 84132; 85025; 87040; 87086; 87088; 93005; 99285; J0696; J2270; J2405; J7030

== ENCOUNTER 2017-10-04 15:37 | Emergency (ER) | payer BC ==
[2017-10-04 16:00] LABS: Arterial Blood Carboxyhemoglob 1.1 % (0-1.5); Blood Gas Oxyhemoglobin 94.2 % (94-97); Blood O2 Saturation 96.4 % (92-98.5)
[2017-10-04] MEDS ORDERED: NA CHLORIDE 0.9% 2,000 ML ONE (16:07)
[2017-10-04 16:18] LABS: Absolute Lymphocytes (CBC) 1.5 K/uL (0.7-4.9); Absolute Monocytes 0.4 K/uL (0.1-1.3); Eosinophils % 1.6 % (0-4.4); Hematocrit 26.6 % (36.0-45.0); Lymphocytes % 21.2 % (15.3-44.8); MCH 21.8 pg (27.0-35.0); MCV 72.2 fL (80-100); MPV 8.7 fL (7.6-11.3); Monocytes % 5.9 % (3.3-12.3); RBC Red Blood Cell Count 3.68 M/uL (3.86-4.86)
[2017-10-04] MEDS ORDERED: ONDANSETRON 4 MG/2 ML VIAL ONE (16:29)
[2017-10-04 16:35] LABS: ALT/SGPT 12 U/L (12-78); AST/SGOT 17 U/L (15-37); Albumin 2.9 g/dL (3.4-5.0); Alkaline Phosphatase 103 U/L (45-117); BUN Blood Urea Nitrogen 12 mg/dL (7-18); Bicarbonate 30 mmol/L (21-32); Bilirubin Direct < 0.1 mg/dL (0-0.2); Bilirubin Total 0.2 mg/dL (0.2-1.0); Glucose Level 336 mg/dL (74-106); Lipase 315 U/L (73-393); Potassium 3.5 mmol/L (3.5-5.1); Protein, Total 6.3 g/dL (6.4-8.2); Sodium Level 138 mmol/L (136-145)
[2017-10-04 16:35] LABS: Urine Blood NEGATIVE (NEG); Urine Glucose 3+ (NEG); Urine Protein NEGATIVE (NEG)
[2017-10-04 17:06] LABS: Anisocytosis 1+; Blood Morphology Comment NOTED (NOT SEEN); Hypochromasia 1+; Platelet Estimate INCR; Urine White Blood Cell Casts OK
--- NOTE | 2017-10-04 18:24 | EDPHYS ---
Physician Documentation [facility] Name: Abigail Oro Age: 41 yrs Sex: Female : 1975 Arrival Date: 10/04/2017 Time: 15:42 Bed 7 Private MD: ED Physician Isac Cueto HPI: 10/04 16:57 This 41 yrs old Female presents to ER via EMS with complaints of High Blood jr8 Sugar. 16:57 Onset: The symptoms/episode began/occurred gradually, 1 week(s) ago. Associated signs jr8 and symptoms: Pertinent positives: nausea. Current symptoms: In the emergency department the patient's symptoms are unchanged from the initial presentation. The patient has experienced similar episodes in the past, several times. The patient has not recently seen a physician. Patient has been incarcerated and stated that she has not had her diabetic medication. Stated that she now is feeling weak, having back pain, and nausea which she gets before she goes into DKA. 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 - Social history:: Smoking status: Patient uses tobacco products, smokes one-half pack cigarettes per day. - Ebola Screening: : No symptoms or risks identified at this time. ROS: 16:57 Eyes: Negative for injury, pain, redness, and discharge, ENT: Negative for injury, jr8 pain, and discharge, Neck: Negative for injury, pain, and swelling, Cardiovascular: Negative for chest pain, palpitations, and edema, Respiratory: Negative for shortness of breath, cough, wheezing, and pleuritic chest pain, MS/Extremity: Negative for injury and deformity, Skin: Negative for injury, rash, and discoloration, Neuro: Negative for headache, weakness, numbness, tingling, and seizure. 16:57 Abdomen/GI: Positive for nausea, Negative for abdominal pain, vomiting, diarrhea, constipation, abdominal cramps, abdominal distension, anorexia, dysphagia, hematemesis, black/tarry stool, rectal pain, rectal bleeding, bowel incontinence, flatulence. 16:57 Back: Positive for pain at rest, Negative for pain with movement, radiated pain. Exam: 16:57 Eyes: Pupils equal round and reactive to light, extra-ocular motions intact. Lids and jr8 lashes normal. Conjunctiva and sclera are non-icteric and not injected. Cornea within normal limits. Periorbital areas with no swelling, redness, or edema. ENT: Nares patent. No nasal discharge, no septal abnormalities noted. Tympanic membranes are normal and external auditory canals are clear. Oropharynx with no redness, swelling, or masses, exudates, or evidence of obstruction, uvula midline. Mucous membranes moist. Neck: Trachea midline, no thyromegaly or masses palpated, and no cervical lymphadenopathy. Supple, full range of motion without nuchal rigidity, or vertebral point tenderness. No Meningismus. Cardiovascular: Regular rate and rhythm with a normal S1 and S2. No gallops, murmurs, or rubs. Normal PMI, no JVD. No pulse deficits. Respiratory: Lungs have equal breath sounds bilaterally, clear to auscultation and percussion. No rales, rhonchi or wheezes noted. No increased work of breathing, no retractions or nasal flaring. Abdomen/GI: Soft, non-tender, with normal bowel sounds. No distension or tympany. No guarding or rebound. No evidence of tenderness throughout. Back: No spinal tenderness. No costovertebral tenderness. Full range of motion. Skin: Warm, dry with normal turgor. Normal color with no rashes, no lesions, and no evidence of cellulitis. MS/ Extremity: Pulses equal, no cyanosis. Neurovascular intact. Full, normal range of motion. Neuro: Awake and alert, GCS 15, oriented to person, place, time, and situation. Cranial nerves II-XII grossly intact. Motor strength 5/5 in all extremities. Sensory grossly intact. Cerebellar exam normal. Normal gait. Vital Signs: 15:55 BP 99 / 62; Pulse 76; Resp 16 S; Pulse Ox 100% on R/A; jl7 15:57 Temp 98.6(O); Weight 68.04 kg (R); Height 5 ft. 2 in. (157.48 cm) (R); jl7 16:30 BP 106 / 67; Pulse 83; Resp 16; Pulse Ox 100% ; jl7 17:58 BP 113 / 70; Pulse 79; Resp 16; Pulse Ox 100% ; jl7 18:28 BP 120 / 62; Pulse 75; Resp 16; Pulse Ox 100% ; jl7 15:57 Body Mass Index 27.44 (68.04 kg, 157.48 cm) jl7 MDM: 15:44 Patient medically screened. jr8 18:23 Data reviewed: vital signs, nurses notes, lab test result(s), and as a result, I will jr8 discharge patient. Data interpreted: Pulse oximetry: on room air is 100 %. Interpretation: normal. Counseling: I had a detailed discussion with the patient and/or guardian regarding: the historical points, exam findings, and any diagnostic results supporting the discharge/admit diagnosis, lab results, the need for outpatient follow up, a family practitioner, to return to the emergency department if symptoms worsen or persist or if there are any questions or concerns that arise at home. Response to treatment: the patient's symptoms have markedly improved after treatment, patient is well hydrated. and as a result, I will discharge patient. 10/04 15:45 Order name: Basic Metabolic Panel; Complete Time: 16:10/04 15:45 Order name: CBC with Diff; Complete Time: 17:15 10/04 15:45 Order name: Creatinine for Radiology; Complete Time: 16:57 [facility] 10/04 15:45 Order name: Hepatic Function; Complete Time: 16:57 10/04 15:45 Order name: Lipase; Complete Time: 16:57 10/04 15:45 Order name: Ketone, Serum; Complete Time: 16:57 10/04 15:45 Order name: ABG; Complete Time: 16:57 [facility] 10/04 16:19 Order name: CBC Smear Scan; Complete Time: 17:15 [facility] 10/04 16:28 Order name: Urine Dipstick--Ancillary (enter results); Complete Time: 16:57 ag 10/04 16:28 Order name: Urine --Ancillary (enter results); Complete Time: 16:57 ag 10/04 17:07 Order name: Glucose, Ancillary Testing; Complete Time: 17:15 [facility] 10/04 18:11 Order name: Glucose, Ancillary Testing; Complete Time: 18:23 [facility] 10/04 15:45 Order name: IV Saline Lock; Complete Time: 16:08 [facility] 10/04 15:45 Order name: Labs collected and sent; Complete Time: 16:08 [facility] 10/04 15:45 Order name: Urine Dipstick-Ancillary (obtain specimen); Complete Time: 16:07 [facility] 10/04 15:45 Order name: Urine Test (obtain specimen); Complete Time: 16:18 [facility] Administered Medications: 16:25 Drug: Zofran 4 mg Route: IVP; Site: right antecubital; jl7 16:38 Follow up: Response: No adverse reaction; Nausea is decreased jl7 17:00 Follow up: Response: No adverse reaction; Nausea is decreased jl7 16:29 Drug: NS 0.9% 1000 ml Route: IV; Rate: 1000 ml; Site: right antecubital; jl7 18:15 Follow up: IV Status: Completed infusion jl7 17:00 Drug: NS 0.9% 1000 ml Route: IV; Rate: 1000 ml; Site: right antecubital; jl7 18:00 Follow up: IV Status: Completed infusion jl7 18:26 Drug: TORadol 30 mg Route: IVP; Site: left antecubital; jl7 18:51 Follow up: Response: No adverse reaction; Pain is decreased jl7 Point of Care Testing: Blood Glucose: 16:13 Blood Glucose: 337 mg/dL; jl7 18:22 Blood Glucose: 264 mg/dL; em1 Ranges: Critical Glucose Levels:Adult <50 mg/dl or >400 mg/dl <40 mg/dl or >180 mg/dl Disposition: 10/04/17 18:24 Discharged to Law Enforcement. Impression: Hyperglycemia, unspecified. - Condition is Stable. - Discharge Instructions: Hyperglycemia, Blood Glucose Monitoring, Adult. - Medication Reconciliation Form, Thank You Letter, Antibiotic Education, Prescription Opioid Use form. - Follow up: Private Physician; When: 2 - 3 days; Reason: Recheck today's complaints, Continuance of care, Re-evaluation by your physician. - Problem is new. - Symptoms have improved. Addendum: 10/11/2017 11:27 Co-signature as Attending Physician, Isac Cueto MD I agree with the assessment and k dr plan of care. Signatures: Dispatcher [employer] [facility] Isac Cueto MD MD kdr Roszak, Josh, PA PA jr8 Suha Sanabria RN RN jl7 Corrections: (The following items were deleted from the chart) 10/04 18:51 18:24 10/04/2017 18:24 Discharged to Law Enforcement. Impression: Hyperglycemia, jl7 unspecified. Condition is Stable. Forms are Medication Reconciliation Form, Thank You Letter, Antibiotic Education, Prescription Opioid Use. Follow up: Private Physician; When: 2 - 3 days; Reason: Recheck today's complaints, Continuance of care, Re-evaluation by your physician. Problem is new. Symptoms have improved. jr8
--- NOTE | 2017-10-04 18:24 | ER ---
Nurse's Notes [facility] Name: Abigail Oro Age: 41 yrs Sex: Female : 1975 Arrival Date: 10/04/2017 Time: 15:42 Bed 7 Private MD: Diagnosis: Hyperglycemia, unspecified Presentation: 10/04 15:52 Presenting complaint: EMS states: She's been in custody since Sunday, took meds as jl7 usual on Sunday but has not taken medications correctly since then. BGL 417, reports bilateral kidney pain. Transition of care: patient was not received from another setting of care. Onset of symptoms was October 04, 2017. Risk Assessment: Do you want to hurt yourself or someone else? Patient reports no desire to harm self or others. Initial Sepsis Screen: Does the patient meet any 2 criteria? No. Patient's initial sepsis screen is negative. Does the patient have a suspected source of infection? No. Patient's initial sepsis screen is negative. Care prior to arrival: Medication(s) given: Normal saline infusion, 250 ml IV initiated. 20 GA, in the right antecubital area, Glucose check: 417. 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 - Social history:: Smoking status: Patient uses tobacco products, smokes one-half pack cigarettes per day. - Ebola Screening: : No symptoms or risks identified at this time. Screenin:13 Abuse screen: Denies threats or abuse. Denies injuries from another. Nutritional jl7 screening: No deficits noted. Tuberculosis screening: No symptoms or risk factors identified. Fall Risk IV access (20 points). Total Gupta Fall Scale indicates No Risk (0-24 pts). Assessment: 15:50 General: Appears in no apparent distress. uncomfortable, Behavior is calm, cooperative. jl7 Pain: Complains of pain in left low back and right low back Pain does not radiate. Pain currently is 9 out of 10 on a pain scale. Quality of pain is described as aching, Pain began 1 day ago. Is continuous. Neuro: Level of Consciousness is awake, alert, obeys commands, Oriented to person, place, time, situation. Cardiovascular: Patient's skin is warm and dry. Respiratory: Airway is patent Respiratory effort is even, unlabored, Respiratory pattern is regular, symmetrical, Breath sounds are clear bilaterally. GI: Abdomen is flat, non-distended, Reports nausea, Patient currently denies diarrhea, vomiting. : No signs and/or symptoms were reported regarding the genitourinary system. EENT: No signs and/or symptoms were reported regarding the EENT system. Derm: Skin is pink, warm \T\ dry. Musculoskeletal: No signs and/or symptoms reported regarding the musculoskeletal system. 17:00 Reassessment: Patient and/or family updated on plan of care and expected duration. Pain jl7 level reassessed. Patient is alert, oriented x 3, equal unlabored respirations, skin warm/dry/pink. 18:10 Reassessment: Pt requesting pain medication for continued low back pain. Provider [email or web address] notified, see MAR for orders. Vital Signs: 15:55 BP 99 / 62; Pulse 76; Resp 16 S; Pulse Ox 100% on R/A; jl7 15:57 Temp 98.6(O); Weight 68.04 kg (R); Height 5 ft. 2 in. (157.48 cm) (R); jl7 16:30 BP 106 / 67; Pulse 83; Resp 16; Pulse Ox 100% ; jl7 17:58 BP 113 / 70; Pulse 79; Resp 16; Pulse Ox 100% ; jl7 18:28 BP 120 / 62; Pulse 75; Resp 16; Pulse Ox 100% ; jl7 15:57 Body Mass Index 27.44 (68.04 kg, 157.48 cm) jl7 ED Course: 15:42 Patient arrived in ED. jl7 15:44 Rich Olmos PA is PHCP. jr8 15:44 Isac Cueto MD is Attending Physician. jr8 15:52 Suha Sanabria RN is Primary Nurse. jl7 15:54 Triage completed. jl7 15:55 Arm band placed on right wrist. jl7 15:55 Maintain EMS IV. Dressing intact. Good blood return noted. Site clean \T\ dry. Gauge \T\ jl 7 site: 20 right AC. 16:10 Initial lab(s) drawn, by me, sent to lab. Urine collected: clean catch specimen, cloudy.jl7 16:13 Patient has correct armband on for positive identification. Bed in low position. Call [facility] light in reach. Side rails up X 1. Pulse ox on. NIBP on. Warm blanket given. 18:50 No provider procedures requiring assistance completed. IV discontinued, intact, jl7 bleeding controlled, No redness/swelling at site. Pressure dressing applied. Administered Medications: 16:25 Drug: Zofran 4 mg Route: IVP; Site: right antecubital; jl7 16:38 Follow up: Response: No adverse reaction; Nausea is decreased jl7 17:00 Follow up: Response: No adverse reaction; Nausea is decreased jl7 16:29 Drug: NS 0.9% 1000 ml Route: IV; Rate: 1000 ml; Site: right antecubital; jl7 18:15 Follow up: IV Status: Completed infusion jl7 17:00 Drug: NS 0.9% 1000 ml Route: IV; Rate: 1000 ml; Site: right antecubital; jl7 18:00 Follow up: IV Status: Completed infusion jl7 18:26 Drug: TORadol 30 mg Route: IVP; Site: left antecubital; jl7 18:51 Follow up: Response: No adverse reaction; Pain is decreased jl7 Point of Care Testing: Blood Glucose: 16:13 Blood Glucose: 337 mg/dL; jl7 18:22 Blood Glucose: 264 mg/dL; em1 Ranges: Outcome: 18:24 Discharge ordered by . jr8 18:50 Discharged to Law Enforcement jl7 18:50 Condition: stable 18:50 Discharge instructions given to patient, police, Instructed on discharge instructions, follow up and referral plans. medication usage, Demonstrated understanding of instructions, follow-up care. 18:51 Patient left the ED. jl7 Signatures: Jefry Naik em1 Rich Olmos PA PA jr8 Suha Sanabria RN RN jl7
[2017-10-04] MEDS ORDERED: KETOROLAC 30 MG/ML INJ ONE (18:26)
[2017-10-04 18:57] VITALS: TEMP 98.6; O2SAT 100
[2017-10-04 19:00] VITALS: BP 120/62
== END 2017-10-04 18:51 ==
LOC: ER 15:37
DX: E11.65 Type 2 diabetes mellitus with hyperglycemia (principal); Z79.84 Long term (current) use of oral hypoglycemic drugs; F17.210 Nicotine dependence, cigarettes, uncomplicated; Z91.048 Other nonmedicinal substance allergy status; E03.9 Hypothyroidism, unspecified
CPT/HCPCS: 36415; 80048; 80076; 81003; 81025; 82010; 82805; 82962; 83690; 85025; 99284; J2405; J7030

== ENCOUNTER 2017-10-05 14:35 | Emergency (ER) | payer BC ==
[2017-10-05 14:52] LABS: Absolute Monocytes 0.3 K/uL (0.1-1.3); Absolute Neutrophil 6.9 K/uL (1.8-8.0); Basophils % 1.5 % (0-1.3); Eosinophils % 0.8 % (0-4.4); Hematocrit 30.9 % (36.0-45.0); Lymphocytes % 20.7 % (15.3-44.8); MCH 21.2 pg (27.0-35.0); MCV 71.7 fL (80-100); MPV 8.5 fL (7.6-11.3); Monocytes % 3.6 % (3.3-12.3); RBC Red Blood Cell Count 4.31 M/uL (3.86-4.86)
[2017-10-05] MEDS ORDERED: NA CHLORIDE 0.9% 1,000 ML ONE (15:14)
[2017-10-05] MEDS ORDERED: ACETAMINOPHEN 500 MG TAB ONE (15:38)
[2017-10-05 15:40] LABS: BUN Blood Urea Nitrogen 9 mg/dL (7-18); Bicarbonate 27 mmol/L (21-32); Glucose Level 88 mg/dL (74-106); Sodium Level 141 mmol/L (136-145)
[2017-10-05] MEDS ORDERED: GLUCAGON 1 MG/VIAL IV ONE (16:00)
[2017-10-05 16:27] LABS: Urine Blood NEGATIVE (NEG); Urine Glucose TRACE (NEG); Urine Protein NEGATIVE (NEG); Urine Specific Gravity 1.015 (1.005-1.030)
[2017-10-05 16:30] LABS: Urine Bacteria <20 /HPF (<20); Urine Culture Reflex Order NOT NEEDED; Urine RBC <5 /HPF (NONE SEEN); Urine Yeast FEW (NONE SEEN)
--- NOTE | 2017-10-05 16:41 | ER ---
Nurse's Notes [facility] Name: Abigail Oro Age: 41 yrs Sex: Female : 1975 Arrival Date: 10/05/2017 Time: 14:37 Bed 7 Private MD: Diagnosis: Hypoglycemia, unspecified Presentation: 10/05 14:39 Presenting complaint: EMS states: Called out for poss low blood sugar, pt c/o severe hb generalized weakness. BGL 47, 45 after administration of oral glucose, 76 after administration of D10. BP 119/73, HR 88, NSR on 12 lead. 20G LEFT AC, NS 100mls administered TREE TRIMMER. Transition of care: [facility]. Onset of symptoms was October 05, 2017. Risk Assessment: Do you want to hurt yourself or someone else? Patient reports no desire to harm self or others. Initial Sepsis Screen: Does the patient meet any 2 criteria? No. Patient's initial sepsis screen is negative. Does the patient have a suspected source of infection? No. Patient's initial sepsis screen is negative. Care prior to arrival: Medication(s) given: D10, NS 100mls IV initiated. 20 GA, in the left antecubital area. 14:39 Method Of Arrival: EMS: [facility] hb 14:39 Acuity: EILEEN 3 hb Historical: - Allergies: 14:39 Keflex; hb - Immunization history:: Adult Immunizations up to date. - Social history:: Smoking status: Patient uses tobacco products, smokes one-half pack cigarettes per day. - Ebola Screening: : No symptoms or risks identified at this time. - Family history:: not pertinent. - Hospitalizations: : No recent hospitalization is reported. Screenin:45 Abuse screen: Denies threats or abuse. Denies injuries from another. Nutritional hb screening: No deficits noted. Tuberculosis screening: No symptoms or risk factors identified. Fall Risk Total Gupta Fall Scale indicates Low Risk Score (25-44 pts). Fall prevention measures have been instituted. Side Rails Up X 2 Frequent Obs/Assesments occuring As available Patient and Family Educated on Fall Prevention Program and strategies. Assessment: 14:45 General: Appears in no apparent distress. Behavior is calm, cooperative. Pain: Denies hb pain. Neuro: Level of Consciousness is awake, alert, obeys commands, Oriented to person, place, time, situation. Cardiovascular: Heart tones S1 S2 present Capillary refill < 3 seconds Patient's skin is warm and dry. Respiratory: Airway is patent Trachea midline Respiratory effort is even, unlabored, Respiratory pattern is regular, symmetrical, Breath sounds are clear bilaterally. GI: No signs and/or symptoms were reported involving the gastrointestinal system. : No signs and/or symptoms were reported regarding the genitourinary system. EENT: No signs and/or symptoms were reported regarding the EENT system. Derm: No signs and/or symptoms reported regarding the dermatologic system. Skin is intact, is healthy with good turgor. Musculoskeletal: No signs and/or symptoms reported regarding the musculoskeletal system. 15:30 Reassessment: Patient appears in no apparent distress at this time. Patient and/or hb family updated on plan of care and expected duration. Pain level reassessed. Patient is alert, oriented x 3, equal unlabored respirations, skin warm/dry/pink. 16:00 Reassessment: Pt ambulated to bathroom with steady gait, urine specimen provided. Back hb to bed without assistance. Bed locked in low position. Call light within reach. [facility] officer remains at bedside. 16:56 Reassessment: Patient appears in no apparent distress at this time. Patient and/or hb family updated on plan of care and expected duration. Pain level reassessed. Patient is alert, oriented x 3, equal unlabored respirations, skin warm/dry/pink. Patient denies pain at this time. Patient states feeling better. Patient states symptoms have improved. Vital Signs: 14:37 BP 105 / 78; Pulse 83; Resp 16; Temp 97.9(O); Pulse Ox 100% on R/A; Pain 0/10; hb 16:04 BP 120 / 73; Pulse 79; Resp 16; Pulse Ox 100% ; sv ED Course: 14:37 Patient arrived in ED. hb 14:39 Noah Pappas MD is Attending Physician. rn 14:42 Initial lab(s) drawn, by me, sent to lab. Maintain EMS IV. Dressing intact. Good blood sv return noted. Site clean \T\ dry. Gauge \T\ site: 20G L AC. 14:43 Triage completed. hb 14:44 Arm band placed on right wrist. hb 15:00 Patient has correct armband on for positive identification. Bed in low position. Call hb light in reach. Side rails up X 1. 15:13 Lab(s) recollected, by me, sent to lab. [facility] 15:34 Jade Arceo, RN is Primary Nurse. hb 16:58 No provider procedures requiring assistance completed. IV discontinued, intact, hb bleeding controlled, No redness/swelling at site. Pressure dressing applied. Administered Medications: 14:58 Drug: NS 0.9% 1000 ml Route: IV; Rate: 1000 ml; Site: left antecubital; hb 15:45 Follow up: Response: No adverse reaction; IV Status: Completed infusion hb 15:25 Drug: Glucagon 1 mg Route: IVP; Site: left antecubital; hb 16:00 Follow up: Response: No adverse reaction Point of Care Testing: Blood Glucose: 14:42 Blood Glucose: 117 mg/dL; sv 16:35 Blood Glucose: 198 mg/dL; sv Ranges: Outcome: 16:41 Discharge ordered by MD. rn 16:58 Discharged to Law Enforcement 16:58 Condition: stable 16:58 Discharge instructions given to patient, police, Instructed on discharge instructions, follow up and referral plans. medication usage, Demonstrated understanding of instructions, follow-up care, medications. 17:05 Patient left the ED. Signatures: Jennifer Reyes RN RN Noah Pappas MD MD rn Smirch, Shelby, RN RN Jade Arceo, RN RN Maryellen Lombardi [facility]
--- NOTE | 2017-10-05 16:41 | EDPHYS ---
Physician Documentation [facility] Name: Abigail Oro Age: 41 yrs Sex: Female : 1975 Arrival Date: 10/05/2017 Time: 14:37 Bed 7 Private MD: ED Physician Noah Pappas HPI: 10/05 15:49 This 41 yrs old Female presents to ER via EMS with complaints of Low Blood rn Sugar. 15:49 The patient or guardian reports hypoglycemia. Onset: The symptoms/episode rn began/occurred just prior to arrival. Associated signs and symptoms: Pertinent positives: diaphoresis. Current symptoms: In the emergency department the patient's symptoms have improved. The patient has experienced similar episodes in the past. Reports in senior care right now, was being transferred, took long acting insulin and PO meds, didn't eat much of the food she was given, didn't take her short acting insulin, improved now, states happens frequently, felt it coming, given D10 by EMS. Sugar was in 40s.. Historical: - Allergies: 14:39 Keflex; hb - Immunization history:: Adult Immunizations up to date. - Social history:: Smoking status: Patient uses tobacco products, smokes one-half pack cigarettes per day. - Ebola Screening: : No symptoms or risks identified at this time. - Family history:: not pertinent. - Hospitalizations: : No recent hospitalization is reported. ROS: 15:49 Constitutional: Negative for fever, chills, and weight loss, Eyes: Negative for injury, rn pain, redness, and discharge, Neck: Negative for injury, pain, and swelling, Cardiovascular: Negative for chest pain, palpitations, and edema, Respiratory: Negative for shortness of breath, cough, wheezing, and pleuritic chest pain, Abdomen/GI: Negative for abdominal pain, nausea, vomiting, diarrhea, and constipation, MS/Extremity: Negative for injury and deformity, Skin: Negative for injury, rash, and discoloration, Neuro: Negative for headache, weakness, numbness, tingling, and seizure. Exam: 15:49 Constitutional: This is a well developed, well nourished patient who is awake, alert, rn and in no acute distress. Head/Face: Normocephalic, atraumatic. Eyes: Pupils equal round and reactive to light, extra-ocular motions intact. Lids and lashes normal. Conjunctiva and sclera are non-icteric and not injected. Cornea within normal limits. Periorbital areas with no swelling, redness, or edema. Cardiovascular: Regular rate and rhythm with a normal S1 and S2. No gallops, murmurs, or rubs. Normal PMI, no JVD. No pulse deficits. Respiratory: Lungs have equal breath sounds bilaterally, clear to auscultation and percussion. No rales, rhonchi or wheezes noted. No increased work of breathing, no retractions or nasal flaring. Abdomen/GI: Soft, non-tender, with normal bowel sounds. No distension or tympany. No guarding or rebound. No evidence of tenderness throughout. MS/ Extremity: Pulses equal, no cyanosis. Neurovascular intact. Full, normal range of motion. Equal circumference. Neuro: Awake and alert, GCS 15, oriented to person, place, time, and situation. Cranial nerves II-XII grossly intact. Motor strength 5/5 in all extremities. Sensory grossly intact. Cerebellar exam normal. Normal gait. Vital Signs: 14:37 BP 105 / 78; Pulse 83; Resp 16; Temp 97.9(O); Pulse Ox 100% on R/A; Pain 0/10; hb 16:04 BP 120 / 73; Pulse 79; Resp 16; Pulse Ox 100% ; sv MDM: 14:39 Patient medically screened. rn 16:40 Differential diagnosis: hypoglycemic episode. Data reviewed: vital signs, nurses notes, manager furniture test result(s), and as a result, I will discharge patient. Counseling: I had a detailed discussion with the patient and/or guardian regarding: the historical points, exam findings, and any diagnostic results supporting the discharge/admit diagnosis, lab results, the need for outpatient follow up, to return to the emergency department if symptoms worsen or persist or if there are any questions or concerns that arise at home. Response to treatment: the patient's symptoms have markedly improved after treatment, the patient's condition has returned to base line, the patient is now symptom free, patient is well hydrated. and as a result, I will discharge patient. Special discussion: I discussed with the patient/guardian in detail that at this point there is no indication for admission to the hospital. It is understood, however, that if the symptoms persist or worsen the patient needs to return immediately for re-evaluation. 06/29 14:41 Order name: Basic Metabolic Panel; Complete Time: 15:54 rn 10/05 14:41 Order name: Urine Microscopic Only; Complete Time: 16:31 rn 10/05 14:41 Order name: CBC with Diff; Complete Time: 15:54 rn 10/05 14:46 Order name: Glucose, Ancillary Testing; Complete Time: 15:54 EDMS 10/05 16:20 Order name: Urine Dipstick--Ancillary (enter results); Complete Time: 16:31 ag 10/05 16:20 Order name: Urine --Ancillary (enter results); Complete Time: 16:31 ag 10/05 14:41 Order name: IV Start; Complete Time: 14:44 rn 10/05 14:41 Order name: Urine Test (obtain specimen); Complete Time: 16:02 rn 10/05 14:41 Order name: Urine Dipstick-Ancillary (obtain specimen); Complete Time: 16:02 rn 10/05 14:41 Order name: Glucose Level; Complete Time: 14:44 rn 10/05 14:44 Order name: Diet Ada 1800 Raul; Complete Time: 14:44 sv 10/05 16:35 Order name: Glucose, Ancillary Testing EDMS Administered Medications: 14:58 Drug: NS 0.9% 1000 ml Route: IV; Rate: 1000 ml; Site: left antecubital; hb 15:45 Follow up: Response: No adverse reaction; IV Status: Completed infusion hb 15:25 Drug: Glucagon 1 mg Route: IVP; Site: left antecubital; hb 16:00 Follow up: Response: No adverse reaction hb Point of Care Testing: Blood Glucose: 14:42 Blood Glucose: 117 mg/dL; sv 16:35 Blood Glucose: 198 mg/dL; sv Ranges: Critical Glucose Levels:Adult <50 mg/dl or >400 mg/dl <40 mg/dl or >180 mg/dl Disposition: 10/05/17 16:41 Discharged to Home. Impression: Hypoglycemia, unspecified. - Condition is Stable. - Discharge Instructions: Hypoglycemia, Blood Glucose Monitoring, Adult. - Medication Reconciliation Form, Thank You Letter, Antibiotic Education, Prescription Opioid Use form. - Follow up: Private Physician; When: As needed; Reason: Recheck today's complaints, Re-evaluation by your physician. - Problem is new. - Symptoms have improved. Signatures: Dispatcher [employer] EDNoah Leach MD MD rn Smirch, Shelby, RN RN ss Baxter, Heather, RN RN Corrections: (The following items were deleted from the chart) 17:05 16:41 10/05/2017 16:41 Discharged to Home. Impression: Hypoglycemia, unspecified. ss Condition is Stable. Forms are Medication Reconciliation Form, Thank You Letter, Antibiotic Education, Prescription Opioid Use. Follow up: Private Physician; When: As needed; Reason: Recheck today's complaints, Re-evaluation by your physician. Problem is new. Symptoms have improved. rn
[2017-10-05 17:10] VITALS: TEMP 97.9; O2SAT 100
[2017-10-05 17:11] VITALS: BP 120/73
== END 2017-10-05 17:05 | disposition home or self-care (01) ==
LOC: ER 14:35
DX: E16.2 Hypoglycemia, unspecified (principal); F17.210 Nicotine dependence, cigarettes, uncomplicated; Z88.1 Allergy status to other antibiotic agents
CPT/HCPCS: 36415; 80048; 81003; 81015; 81025; 82962; 85025; 96361; 96374; 99284; J1610; J7030